=== PATIENT | female | born 1960 | race Two or more races ===

== ENCOUNTER 2017-01-13 17:31 | Emergency (ER) | payer BC ==
[2017-01-13 17:43] VITALS: RESP 16; O2SAT 98
[2017-01-13 17:44] VITALS: TEMP 97.7
--- NOTE | 2017-01-13 18:23 | EDPHY ---
H & P Smoking Status: Never smoked Time Seen by Provider: 01/13/17 17:57 HPI/ROS: CHIEF COMPLAINT: Dysuria, hematuria HISTORY OF PRESENT ILLNESS: 56-year-old female presents to the emergency department with dysuria and frequency with urination that began yesterday. She states that they are traveling and today she noted blood in her urine as well as blood with wiping. She is postmenopausal. She has some mild low back discomfort. She has some lower abdominal discomfort and bloating. No nausea or vomiting. No fevers or chills. No chest pain or difficulty breathing. She tried taking [id number] medication without relief. REVIEW OF SYSTEMS: Constitutional: No fever, no chills. Eyes: No double or blurry vision. ENT: No sore throat. Respiratory: No cough, no shortness of breath. Cardiac: No chest pain. Gastrointestinal: No abdominal pain, vomiting or diarrhea. Genitourinary: Dysuria, urgency, frequency, hematuria as above. Musculoskeletal: No neck or back pain. Skin: No rashes. Neurological: No headache. (Macrina Coelho) Past Medical/Surgical History: Cosmetic surgery, history of hypoxia (Macrina Coelho) Social History: (Macrina Coelho) Physical Exam: General Appearance: Alert, no distress. 36.5 temperature. Afebrile. Eyes: Pupils equal and round. Extraocular motions are all intact. ENT: Mouth: Mucous membranes moist. Respiratory: No wheezing, rhonchi, or rales, lungs are clear to auscultation. Cardiovascular: Regular rate and rhythm. Gastrointestinal: Abdomen is soft and nontender, no masses, no rebound or guarding, bowel sounds normal. No CVA tenderness bilaterally. Neurological: Alert and oriented x 3, cranial nerves II through XII grossly intact Skin: Warm and dry, no rashes. Musculoskeletal: Nontender to palpate along the cervical, thoracic or lumbar spine. Neck is supple. Extremities: Full range of motion and no peripheral edema. Psychiatric: Patient is oriented X 3, there is no agitation. (Macrina Coelho) Constitutional: Initial Vital Signs Temperature (C) 36.5 C 01/13/17 17:39 Heart Rate 92 01/13/17 17:39 Respiratory Rate 16 01/13/17 17:39 Blood Pressure 127/76 H 01/13/17 17:39 O2 Sat (%) 98 01/13/17 17:39 O2 Delivery Mode Room Air Allergies/Adverse Reactions: morphine Allergy (Verified 01/13/17 17:39) Home Medications: Medication Instructions Recorded CLONAZEPAM 01/13/17 Ciprofloxacin [Cipro 500 mg] 500 mg PO BID #14 tab 01/13/17 Medical Decision Making ED Course/Re-evaluation: The patient was evaluated and managed by the physician's assistant spa director. My cosignature indicates that I reviewed the chart and I agree with the findings and plan of care as documented. I am the secondary supervising physician. ( Kimberley Hollis) Urine cultures pending. Patient requested a prescription for Cipro as she has taken this in the past and has tolerated this well. The patient was given a dose of Cipro in the emergency department. She was instructed to return if she developed fever, back pain, vomiting, or if she felt worse in any way patient verbalized understanding and agreed. (Macrina Coelho) Differential Diagnosis: Including but not limited to urinary tract infection, pyelonephritis, kidney stone (Macrina Coelho) - Data Points Laboratory Results: 01/13/17 18:00 Urine Color CHELSEA Urine Appearance HAZY Urine pH 6.0 (5.0-7.5) Ur Specific Panther 1.002 (1.002-1.030) Urine Protein NEGATIVE (NEGATIVE) Urine Ketones NEGATIVE (NEGATIVE) Urine Blood 3+ H (NEGATIVE) Urine Nitrate POSITIVE H (NEGATIVE) Urine Bilirubin NEGATIVE (NEGATIVE) Urine Urobilinogen 4.0 EU H EU (0.2-1.0) Ur Leukocyte Esterase 2+ H (NEGATIVE) Urine RBC 3-5 /hpf H /hpf (0-3) Urine WBC 50-182 /hpf H /hpf (0-3) Ur Epithelial Cells TRACE /lpf /lpf (NONE-1+) Urine Bacteria 1+ /hpf H /hpf (NONE SEEN) Urine Glucose NEGATIVE (NEGATIVE) Medications Given: Discontinued Medications Ciprofloxacin (Cipro 500mg Prepack#2) 1 btl TAKEHOME EDNOW ONE Stop: 01/13/17 19:32 Last Admin: 01/13/17 19:51 Dose: 1 btl Departure - Departure Disposition: Home, Routine, Self-Care Clinical Impression: Urinary tract infection Qualifiers: Urinary tract infection type: acute cystitis Hematuria presence: with hematuria Qualified Code(s): N30.01 - Acute cystitis with hematuria Condition: Good Instructions: Ciprofloxacin (By mouth), Urinary Tract Infection in Women (ED) Additional Instructions: Cipro 500 mg twice daily for 1 week. Call [phone] for the results of your urine culture in 48 hours. Referrals: CHARLA HARMON [Other] - As per Instructions Prescriptions: Ciprofloxacin [Cipro 500 mg] 500 mg PO BID #14 tab
[2017-01-13 18:36] LABS: BACTERIA 1+ /hpf (NONE SEEN); COLOR AMBER; LEUKOCYTE ESTERASE,URINE 2+ (NEGATIVE); NITRITE,URINE POSITIVE (NEGATIVE); WBC,URINE 50-182 /hpf (0-3)
[2017-01-13] MEDS ORDERED: CEPHALEXIN 500MG PREPACK#4 BTL TAKEHOME ONE (19:24)
[2017-01-13] MEDS ORDERED: CIPROFLOXACIN 500MG PREPACK#2 BTL TAKEHOME ONE (19:31)
[2017-01-13 19:52] VITALS: BP 97/73; PULSE 88
== END 2017-01-13 19:51 | disposition home or self-care (01) ==
DX: N30.01 Acute cystitis with hematuria (principal); B96.20 Unspecified Escherichia coli [E. coli] as the cause of diseases classified elsewhere